=== PATIENT | female | born 1950 | race Caucasian/White ===

== ENCOUNTER 2016-09-04 18:05 | Inpatient (IN) | payer MEDICARE, OTHER ==
[~2016-09-04] VITALS: Ht 172.7 cm; Wt 90.5 kg
--- NOTE | ~2016-09-04 | HP ---
PATIENT'S NAME: DRU ALEXANDER [facility] AGE: 66 Y [address] 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 She has a known history of Lrrbh-Cqirevkvj-Chtuj syndrome and previous episodes of syncope. She transferred to the [facility] per ambulance due to the syncope. She was then transferred to [facility] for higher level of care and treatment by Dr. Delaney. Over the last few months, the patient denies any presyncope or syncope other than this current episode. She denies dizziness or headaches. She also denies chest pain, shortness of breath, dyspnea on exertion, nausea, or vomiting. She has stated during her ambulance ride, she had some aching chest tightness, but that has resolved as of this dictation. PAST MEDICAL HISTORY: 1. Ktngo-Gwftwzkoq-Wckyb syndrome. 2. Previous history of syncope. 3. Hypothyroidism. 4. Peripheral vascular disease. 5. Arthritis. 6. Hypertension. 7. Dyslipidemia. PAST SURGICAL HISTORY: Vascular Surgery to remove an arterial blockage from her left leg in 2017. FAMILY HISTORY: The patient's mother had a history of hypertension, thyroid disease, and needed a pacemaker. SOCIAL HISTORY: The patient is a former cigarette smoker. She smoked for a total of 35 years and quit smoking in 2015. She denies alcohol or illicit drug use. CURRENT MEDICATIONS: 1. Heparin IV per ACS protocol. 2. Aspirin 81 mg p.o. daily. 3. Fish oil 1000 mg p.o. daily. 4. Levothyroxine 88 mcg p.o. daily. PATIENT'S NAME: DRU ALEXANDER [facility] AGE: 66 Y [address] ROOM: [place] [address] LOCATION: GPCU ADMIT DATE: 09/04/2016 History & Physical DISCHARGE DATE: FAMILY PHYSICIAN: SISI ALCANTARA CHIEF RESOURCE OFFICER ATTENDING PHYSICIAN: Bushra Delaney 5. Lipitor 80 mg p.o. daily. 6. Protonix 40 mg p.o. daily. 7. Vitamin C 500 mg p.o. daily. 8. Vitamin D 1000 units p.o. twice daily. 9. Z-Gen one tablet p.o. daily. MEDICATION ALLERGIES: Latex causing rash. REVIEW OF SYSTEMS: Pertinent positive review of systems as listed in the HPI. All other review of systems were evaluated and negative. PHYSICAL EXAMINATION: VITAL SIGNS: Temperature 97.4, pulse 67, respirations 18, blood pressure 157/96, and O2 saturation 94% on room air. The patient weighs 90.5 kg. SKIN: Rhododendron, warm, and dry. EYES: Sclerae are clear. No xanthelasma. ENT: Oral mucosa is pink and moist. No jugular venous distention or carotid bruits. CHEST: Respirations are even and unlabored. LUNGS: Clear to auscultation. HEART: Regular rate and rhythm. Normal S1 and S2. No murmurs, rubs, or gallops. ABDOMEN: Soft and nontender. MUSCULOSKELETAL: Gait is normal. EXTREMITIES: Peripheral pulses are palpable. No clubbing, cyanosis, or edema. PSYCH: Alert and oriented. Mood and affect are appropriate. IMPRESSION: Per Dr. Delaney: 1. Lkrsf-Axdlfcavg-Dkwwv syndrome with noted delta waves on her EKG. 2. Syncope x2. 3. Hypertension. 4. Dyslipidemia. 5. Peripheral arterial disease, status post COLLAR BASTER in 2017. PLAN: The patient states she has underwent stress testing within the last year which was negative. We will get those medical records from [place]. We will start her on Lipitor 80 mg p.o. daily and plan to proceed with a heart catheterization to fully evaluate coronary anatomy and perfusion due to this unprovoked syncope. We will continue to monitor, evaluate, and treat as appropriate. PATIENT'S NAME: DRU ALEXANDER [facility] AGE: 66 Y [address] ROOM: [id number] [place] [id number] LOCATION[facility] ADMIT DATE: 09/04/2016 History & Physical DISCHARGE DATE: FAMILY PHYSICIAN: SISI ALCANTARA NP ATTENDING PHYSICIAN: Bushra Delaney Thank you for allowing [facility] to interact in the care of this patient. PETER WATKINS APRN FOR MD NIRAJ GRIJALVA/modl /[id number] D: [id number] T: [id number] HISTORY & PHYSICAL
--- NOTE | ~2016-09-04 | ECHO ---
Transthoracic Echocardiography Report (TTE) Demographics Patient Name DRU ALEXANDER Date of Study 09/05/2016 Patient Number [id number] Visit Number [id number] Date of 1950 Room Number G6311 Gender Female Number Age 66 year(s) Referring Elaina Yepez Patient Care Secretary Ozzie Turcios RVT Physician Sandra HUDSON Physician Interpreting [employer] Marketer Physician Marleni Flores MD Supervising Ordering [facility]/MLP Physician Marleni Flores MD Nurse Stress Night Manager Conclusions Contractility Score Summary At rest the following contractility abnormalities were noted: Hypokinesis of the Mid infero-septal, the Apical septal and the Basal infero-septal segments. Contractility of all other segments appeared normal. Summary The estimated left ventricular ejection fraction is 40%. IVC not visualized due to poor subcostal window. The interatrial septum appears aneurysmal. Mild mitral regurgitation by color Doppler. Possible trivial pericardial effusion. Procedure Type of Study TTE procedure:2D Echocardiogram. Procedure Date Date: 09/05/2016 Start: 07:44 AM Study Location: Inpatient Portable Technical Quality: Adequate visualization Indications:Syncope. Appropriate Use Criteria: 9 Patient Status: Routine HR: 68 bpm BP: 146/74 mmHg Allergies - Latex. - Latex. M-Mode/2D Measurements LV Diastolic Dimension: 4.81 cm LV Septum Diastolic: 1.79 cm AO Root Dimension: 2.6 cm LV PW Diastolic: 1.59 cm AV Cusp Separation: 1.7 cm Cardiac Output: 4.42 l/min LA Dimension: 4.3 cm LVOT: 2 cm RV Base: 2.13 cm LVOT VTI: 20.7 cm RV Mid: 1.87 cm LV Stroke volume: 65 ml TAPSE: 2.06 cm TDI-S': 12 cm/s Doppler Measurements AV Peak Velocity: 1.33 m/s MV Peak E-Wave: 0.91 m/s AV Peak Gradient: 7.08 mmHg MV Peak A-Wave: 1.17 m/s AV Mean Gradient: 4 mmHg MV E/A Ratio: 0.78 LVOT Peak Velocity: 0.91 m/s MV P1/2t: 64 msec TR Gradient:27.25 mmHg PV Peak Velocity: 0.73 m/s PV Peak Gradient: 2.11 mmHg E' Septal Velocity: 0.04 m/s A' Septal Velocity: 0.1 m/s E' Lateral Velocity: 0.06 m/s A' Lateral Velocity: 0.13 m/s Findings Left Ventricle Mild concentric left ventricular hypertrophy. Diastolic assessment reveals Grade I diastolic dysfunction. The left ventricle is mildly dilated . Right Ventricle Normal right ventricle structure and function. Left Atrium The left atrium is mildly dilated by LA volume index measurement. Right Atrium IVC not visualized due to poor subcostal window. The interatrial septum appears aneurysmal. Mitral Valve Mild mitral regurgitation by color Doppler. Aortic Valve Normal aortic valve structure and function. Tricuspid Valve Trivial tricuspid regurgitation by color Doppler. Pulmonic Valve Normal pulmonic valve structure and function. Pericardial Effusion Possible trivial pericardial effusion. Miscellaneous Visualized portions of the aortic root and ascending aorta appear normal in size. Pleural Effusion No evidence of pleural effusion. Contractility Score LV regional wall motion:(0-Non visualized 1-Normal 2-Hypokinesis 3-Akinesis 4-Dyskinesis 5-Aneurysm) Signature dtt: Bushra Delaney dtd: 09/05/16 0744 Physician Self Edit
--- NOTE | ~2016-09-04 | CATH ---
Cardiac Diagnostic + PCI Report Demographics Patient Name CATHERINE Pizano Gender Female Date of 1950 Age 66 year(s) Patient Number [id number] Date of Study 09/05/2016 Visit Number [id number] Room Number G6311 [place] [id number] Ht 172.72 cm Wt 90.27 kg Referring [employer] Primary Physician Physician Marleni Flores MD Performing [employer] Secondary Physician Physician Marleni Flores MD Diagnostic [employer] Assisting Physician Physician Marleni Flores MD Interventional [employer] Physician Artists' Model Physician Marleni Flores MD Findings and Conclusions Diagnostic Findings and Conclusion 50%Stenosis in distal LAD and 30% in RCA. 60% small diagonal Possible old occlusion of small posterolateral branch Diagnostic Recommendations FFR of LAD. Interventional Findings and Conclusion FFR of LAD 0.91. Interventional Recommendations Medical therapy. Procedure Description The patient was brought to the diagnostic cardiac catheterization laboratory in the fasting, non-sedated state. Informed consent was obtained in the written and verbal form after the risks and benefits were explained. The patient had no further questions and agreed to proceed. The planned puncture-incision site(s) were shaved and prepped with ChloraPrep and draped in the usual sterile manner. Conscious sedation and pain control medications were delivered by a registered nurse under physician guidance. Surface ECG rhythm, blood pressure measurement, and pulse oximetry were monitored throughout the procedure. Arterial access. The access site was infiltrated with lidocaine. The vessel was entered with the Seldinger technique. A sheath was advanced into the vessel and used for catheter placement. Selective left coronary angiography. A catheter was advanced into the left coronary vessel ostium under Fluoroscopic guidance. Contrast was injected by hand. Images were obtained in multiple projections. Selective right coronary angiography. A catheter was advanced into the right coronary vessel ostium under fluoroscopic guidance. Contrast was injected by hand. Images were obtained in multiple projections. Left heart catheterization. A catheter was advanced across the aortic valve to the left ventricle under fluoroscopic guidance. Resting hemodynamics were obtained. FFR measurement was performed. The vessel was entered with a guiding catheter. The FFR wire was normalized and then advanced across the lesion. Maximum hyperemia was achieved using adenosine. Arterial artery hemostasis was achieved. The patient was transferred to PCU via cart accompanied by a nurse. The patient left the laboratory in stable condition. Diagnostic Cath Status: Urgent Interventional Cath Status: Urgent Procedure Procedure Type Diagnostic procedure:Angiography:, Coronary Angios w/[facility] PCI procedure:Additional Imaging:, FFR/iFR:, Initial Vessel Indications: Fxqef-Xwuvfveud-Swbfm (WPW) and Syncope. The procedure was explained in detail to the patient. Risks, complications and alternative treatments were reviewed. Written consent was obtained. Medications Reviewed with Patient prior to Procedure. Angiographic Findings Dominance: Right Cardiac Arteries and Lesion Findings LMCA: Single stenosis. Lesion on LMCA: Distal subsection.10% stenosis . LAD: Multiple stenosis.Diag 2 OK. Lesion on Dist LAD: Mid subsection.50% stenosis .The guidewire cross was successful. FFR + + + + !FFR !Stage/Medication !Dosage ! + + + + !0.91 !Adenosine (I.V) !140 ! + + + + Devices used - Verrata Pressure Wire. Number of passes: 1. Lesion on 1st Diag: Ostial.60% stenosis . LCx: Normal (0% Stenosis).Patent. OM patent. RCA: Multiple stenosis. Lesion on Prox RCA: Proximal subsection.25% stenosis . Lesion on Mid RCA: Mid subsection.30% stenosis . Coronary Tree Procedure Data Procedure Date Date: 09/05/2016Start: 11:22 AMEnd: 11:56 AM Entry Locations - Retrograde Percutaneous access was performed through the Right Radial artery (Primary location). A 6 Fr sheath was inserted. Hemostasis was successfully obtained using Mechanical Compression. Closure Comments: 14 ml of air in R. Band by R. Bailar.. Procedure Medications Order and Administration + + + + + !Time !Medication !Dosage !Route ! + + + + + !09/05/2016 11:06 AM !Fentanyl !50 mcg !I.V. ! + + + + + !09/05/2016 11:21 AM !Versed !1 mg !I.V. ! + + + + + !09/05/2016 11:24 AM !Radial Verapamil !3 mg !I.A. ! + + + + + !09/05/2016 11:24 AM !Radial Nitroglycerin !200 mcg !I.A. ! + + + + + 09/05/2016 11:24 AM !Radial Heparin (ACC_3) !2500 units !I.A. ! + + + + + !09/05/2016 11:42 AM !Heparin (ACC_3) !4000 units !I.V. bolus ! + + + + + !09/05/2016 11:43 AM !Adenosine (IV) !140 mcg/kg/min !I.V. drip ! + + + + + !09/05/2016 11:46 AM !Adenosine (IV) ! !I.V. drip ! + + + + + !09/05/2016 11:46 AM !Heparin (ACC_3) ! !I.V. drip ! + + + + + Devices Used - A6 Fr. BS JR 4 Diag. Catheterwas used for:Right coronary angiography. - A6 Fr. BS JL 3.5 Diag. Catheterwas used for:Left coronary angiography. - A6 Fr. XBLAD 3.5 Guide Catheterwas used for:LAD Intervention. Contrast Material - Isovue 69011 ml Fluoroscopy Time: Diagnostic: 5:48 minutes. Total: 5:48 minutes. Fluoroscopy Dose: Diagnostic: 863 mGy. Total: 863 mGy. Estimated Blood Loss: 15 ml. Medical History Allergies - Latex. - Latex. Risk Factors The patient risk factors include:peripheral arterial disease, last creatinine: 0.8 mg/dl, creatinine clearance: 95.91 ml/min and former tobacco use. Admission Data Admission Date: 09/04/2016 Admission Time: 07:02 PM Admit Source: [facility] Insurance Payors: Medicare. Admission Medications + +------+-------+ + + + + !Medication!Dosage!Times !Last !Last !Administered !Comments ! ! ! !Per Day!Delivery !Delivery ! ! ! ! ! ! !Date !Time ! ! ! + +------+-------+ + + + + !Aspirin ! ! ! ! ! ! ! !(any) ! ! ! ! ! ! ! + +------+-------+ + + + + !Statin ! ! ! ! ! ! ! !(any) ! ! ! ! ! ! ! + +------+-------+ + + + + Snapshots Hemodynamics Condition: Rest O2 Consumption: Estimated: 189.33Heart Rate: 70 bpm Pressures (mmHg) +-----+ + !Site !Pressure ! +-----+ + !LV !142/2 ,5 ! +-----+ + !LV !135/2 ,4 ! +-----+ + !AO !137/76 (103) ! +-----+ + !LV !137/2 ,5 ! +-----+ + !AO !144/74 (103) ! +-----+ + !AO !152/82 (112) ! +-----+ + Valve Gradients and Areas + +---------+---------+---------+ +---------+ + !Valve !Peak !Mean !Area !Index !Flow !Source ! + +---------+---------+---------+ +---------+ + !Aortic !1 !0 ! ! ! ! ! + +---------+---------+---------+ +---------+ + !Aortic !1 !0 ! ! ! ! ! + +---------+---------+---------+ +---------+ + Shunts Oxygen Values O2 Capacity 167.28 O2 Consumption 189.33 Signatures dtt: Bushra Delaney dtd: 09/05/16 1122 Physician Self Edit
[~2016-09-04 18:05] MED LIST: ALEVE220 MG PO; ASPIRIN (CHILDR81 MG PO; B COMPLEX WITH1 EACH PO; FISH OIL 1,0001 EAC1 PO; GLUCOSAMINE H1500 MG PO; LEVOTHROID(SYN75 MCG; OMEPRAZOLE40 MG PO; VITAMIN C500 M1 PO; VITAMIN D1000 UNIT PO
[2016-09-04] MEDS ORDERED: LEVOTHROID (SY88 MCG PO (19:41)
[2016-09-04] MEDS ORDERED: VITAMIN E400 UNI2 PO (19:44)
--- NOTE | 2016-09-04 19:55 | NUR ---
Patient admit from [facility] after experiencing two syncopal episodes at the [employer] shop today around 1500. 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 States she has occasional chest tightness "ache" that comes and goes that she also experienced last night and in the ambulance on the ride here. Latex allergy. Will get her second pneumo vaccine dose with her usual physician. High risk VTE.
[2016-09-04 20:32] LABS: BASOPHIL % 0.2 %; EOSINOPHIL # 0.1 K/uL (0.0-0.5); EOSINOPHIL % 0.6 %; HEMATOCRIT 38.3 % (33.0-46.0); HEMOGLOBIN 12.3 g/dL (10.0-15.0); IMMATURE GRANULOCYTE % 0.4 %; LYMPHOCYTE # 1.1 K/uL (0.8-4.0); LYMPHOCYTE % 13.3 %; MCH 28.9 pg (27.0-34.0); MCHC 32.1 gm/dL (32.0-36.5); MCV 90.1 fl (83.0-98.0); MONOCYTE # 0.3 K/uL (0.0-1.0); MPV 9.5 fl (9.4-12.4); NEUTROPHIL # (ANC) 6.9 K/uL (1.8-7.8); NEUTROPHIL % 82.5 %; NRBC % 0 /100WBC (0-0.00); PLATELET COUNT 240 K/uL (150-450); RBC 4.25 M/uL (3.50-5.50); RDW-CV 14.9 % (11.9-14.6); WBC 8.3 K/uL (4.0-11.0)
[2016-09-04 20:36] LABS: PROTIME 10.5 SECONDS (9.8-11.4)
[2016-09-04 20:43] LABS: CPK 89 IU/L (21-215)
[2016-09-05 02:52] LABS: CPK 79 IU/L (21-215)
--- NOTE | 2016-09-05 04:43 | NUR ---
Significant Event: PATIENT IS ALERT AND ORIENTED. UP WITH STAND BY ASSIST. NO SYNCOPAL EPISODES. NO TELE CALLS. NSR. PATIENT WILL RECEIVE AN EKG AND ECHO TODAY. HEPARIN GTT AT 1000U/HR. NEXT PTTHP AT 1038. LAST WAS 56. CARDIAC ENZYMES HAVE BEEN NEGATIVE. ONE MORE SET ORDERED. Follow up:
[2016-09-05] MEDS ORDERED: PROGESTERONE100 MG PO (06:36)
[2016-09-05] MEDS ORDERED: ESTRACE0.5 MG PO (06:37)
[2016-09-05 08:52] LABS: CPK 84 IU/L (21-215)
[2016-09-05 09:23] LABS: BASOPHIL % 0.3 %; EOSINOPHIL # 0.1 K/uL (0.0-0.5); EOSINOPHIL % 1.1 %; HEMATOCRIT 36.3 % (33.0-46.0); IMMATURE GRANULOCYTE % 0.2 %; LYMPHOCYTE # 1.7 K/uL (0.8-4.0); LYMPHOCYTE % 27.2 %; MCH 29.2 pg (27.0-34.0); MCHC 33.1 gm/dL (32.0-36.5); MCV 88.3 fl (83.0-98.0); MONOCYTE # 0.3 K/uL (0.0-1.0); MONOCYTE % 5.1 %; MPV 9.4 fl (9.4-12.4); NEUTROPHIL # (ANC) 4.1 K/uL (1.8-7.8); NEUTROPHIL % 66.1 %; NRBC % 0 /100WBC (0-0.00); PLATELET COUNT 221 K/uL (150-450); RBC 4.11 M/uL (3.50-5.50); RDW-CV 14.8 % (11.9-14.6); WBC 6.3 K/uL (4.0-11.0)
[2016-09-05 09:24] LABS: ALBUMIN 2.8 gm/dL (3.5-5.0); ALK PHOS 113 IU/L (33-138); ALT 25 IU/L (12-78); ANION GAP 10.9 (10.0-19.0); AST 21 IU/L (10-40); BLOOD UREA NITROGEN 12 mg/dL (6-24); CALCIUM 8.4 mg/dL (8.5-10.5); CHLORIDE 107 mMol/L (96-110); CO2 27 mMol/L (22-32); CREATININE 0.7 mg/dL (0.5-1.1); ESTIMATED GFR (MDRD EQUATION) > 60; POTASSIUM 3.9 mMol/L (3.7-5.1); SODIUM 141 mMol/L (135-145); TOTAL BILIRUBIN 0.5 mg/dL (0.0-1.5); TOTAL PROTEIN 6.1 g/dL (6.0-8.4)
[2016-09-05 09:33] LABS: INR - (THERAPEUTIC) 1.08 (0.92-1.07); PROTIME 11.4 SECONDS (9.8-11.4); PTT 60 SECONDS (25-32)
[2016-09-05] MEDS ORDERED: COREG 3.1253.125 MG PO (12:19)
--- NOTE | 2016-09-05 16:26 | NUR ---
SIGNIFICANT EVENT: Patient is alert and oriented. Up with SBA. No syncopal episodes this shift. No tele calls. Had heart cath this AM through R) radial-no intervention needed. EF was 40% on ECHO. EKG showed WPW. Normal saline running at 100mL/hour x 400mL. FOLLOW UP: Possible D/C tomorrow.
--- NOTE | 2016-09-06 05:15 | NUR ---
Significant Event: ALL VSS ON RA, AFEBRILE. RIGHT WRIST HAS HAD NO COMPLICATIONS. 650 MG TYLENOL GIVEN X 2 FOR BACK PAIN, LAST AT 0005. COOPERATIVE WITH CARES, RESTED OFF AND ON DUE TO BACK PAIN THIS EVENING. MOST LIKELY DISHCARGE TODAY. Follow up:
[2016-09-06] MEDS ORDERED: LIPITOR80 MG PO (11:13)
[2016-09-06] MEDS ORDERED: PRINIVIL (ZESTR20 MG PO (11:15)
--- NOTE | 2016-09-06 14:38 | NUR ---
DISCHARGE: A/O X3. UP AD ANGEL IN ROOM. RIGHT RADIAL CATH SITE WNL, BANDAID IN PLACE. VSS. DENIES PAIN. DISCHARGE INSTRUCTIONS COMPLETE. NEW MEDICATIONS REVIEWED. FOLLOW-UP APPOINTMENTS DISCUSSED. INFORMATION ABOUT SYNCOPE, PREVENTING DVT, POST CATH CARE FOR RADIAL SITE AND NEW MEDS GIVEN. NO FURTHER QUESTIONS. HOLTER MONITOR APPLIED BY NON-INVASIVE FIELD SERVICES DIRECTOR. TAKEN TO [facility] BY WHEELCHAIR FOR DISCHARGE BY RN @ [phone].
== END 2016-09-06 13:45 | disposition disaster alternative care site (69) | DRG 287 ==
LOC: GPCU 19:02
PROVIDERS: ADMIT Internal Medicine Cardiovascular Disease
DX: I45.6 Pre-excitation syndrome (principal); I42.9 Cardiomyopathy, unspecified; I10 Essential (primary) hypertension; E78.5 Hyperlipidemia, unspecified; I73.9 Peripheral vascular disease, unspecified; I25.10 Atherosclerotic heart disease of native coronary artery without angina pectoris; M19.90 Unspecified osteoarthritis, unspecified site; E03.9 Hypothyroidism, unspecified; Z87.891 Personal history of nicotine dependence
CPT/HCPCS: C1769; C1887; C1894; J0153; J1644; J2250; J3010; J7030

== ENCOUNTER → 2016-09-19 | Outpatient (CLI) | payer MEDICARE, OTHER ==
[~2016-09-19] MED LIST changes: +COREG 3.1253.125 MG PO; +ESTRACE0.5 MG PO; +LEVOTHROID (SY88 MCG PO; +LIPITOR80 MG PO; +PRINIVIL (ZESTR20 MG PO; +PROGESTERONE100 MG PO; +VITAMIN E400 UNI2 PO
[2016-09-19 17:05] LABS: ALBUMIN 2.9 gm/dL (3.5-5.0); ALK PHOS 119 IU/L (33-138); ALT 22 IU/L (12-78); ANION GAP 9.3 (10.0-19.0); AST 15 IU/L (10-40); BLOOD UREA NITROGEN 17 mg/dL (6-24); CALCIUM 8.3 mg/dL (8.5-10.5); CHLORIDE 110 mMol/L (96-110); CO2 28 mMol/L (22-32); CREATININE 0.8 mg/dL (0.5-1.1); ESTIMATED GFR (MDRD EQUATION) > 60; POTASSIUM 4.3 mMol/L (3.7-5.1); SODIUM 143 mMol/L (135-145); TOTAL BILIRUBIN 0.4 mg/dL (0.0-1.5); TOTAL PROTEIN 6.6 g/dL (6.0-8.4)
== END | disposition disaster alternative care site (69) ==
LOC: LNHI 16:35
PROVIDERS: Internal Medicine Cardiovascular Disease
DX: I45.6 Pre-excitation syndrome (principal); I42.8 Other cardiomyopathies; I25.10 Atherosclerotic heart disease of native coronary artery without angina pectoris; R55 Syncope and collapse